=== PATIENT | male | born 1975 | race Caucasian/White ===

== ENCOUNTER 2019-02-26 21:03 | Inpatient (IN) | payer OTHER ==
[~2019-02-26] VITALS: Ht 182.9 cm; Wt 90.7 kg
--- NOTE | 2019-02-26 21:08 | NUR ---
SE RECIBE PT ALERTA Y ORIENTADO X3 DE TRANSFER DESDE [facility], EN AMBULANCIA, EN COMPANIA DE PARAMEDICOS Y FAMILIAR. REFIEREN ABCESO PERIANAL DESDE HACE 2 STEEN.
--- NOTE | 2019-02-26 21:33 | NUR ---
PACIENTE ALERTA Y ORIENTADO X3, CON BUEN PATRON RESPIRATORIO Y SIGNOS VITALES ESTABLES, YA PINCHADO EN BRAZO DERECHO CON ANGIO #20 PATENTE Y LEIA DE EDEMA, SE BERNADINE MUESTRAS BAJO MEDIDAS ASEPTICAS, SE ADMINISTRA MEDICAMENTO GUANAKITO ORDENADO Y SE COLOCA ADRIANA A BAJAR. SE FRANDY TRANQUILO EN CAMA EN ESPERA DE SER REEVALUADO.
--- NOTE | 2019-02-26 23:39 | NUR ---
SE RECIBE PTE ALERTA Y ORIENTADO EN LAS 3 ESFERAS EN CAMA CON BARANDAS ELEVADAS POR SEGURIDAD EN COMPANIA DE FAMILIAR. BUEN PATRON RESPIRATORIO. RECIBIENDO IV'S D5W 0.45 BAJANDO A 150ML/HR AREA LEIA DE EDEMA Y ERITEMA. PENDIENTE CONSULTA CON DR.NICOLAS ROSS. SE MANTIENE EN OBSERVACION POR CAMBIOS EN CONDICION MEDICA.
--- NOTE | 2019-02-27 07:32 | NUR ---
SE RECIBE PAICNETE ALERTA EN CONSULTA CON EL DR. RUSTY ROSS SE MANTIENEEN OBSERVACION EN NPO.
[2019-03-01] MEDS ORDERED: FLAGYL500MG PO (11:07)
[2019-03-01] MEDS ORDERED: CIPRO500 MG PO (11:07)
[2019-03-01] MEDS ORDERED: PERCOCET 5-3251 EACH PO (11:07)
[2019-03-01] MEDS ORDERED: INTESTINEX680 M1 PO (11:07)
== END 2019-03-01 12:35 | disposition home or self-care (01) | DRG 393 ==
LOC: ER 21:03 → SURH 02-27 10:54
PROVIDERS: ADMIT Surgery
PROC: 3E0T3BZ Introduction of Anesthetic Agent into Peripheral Nerves and Plexi, Percutaneous Approach (ICD-10-PCS; 2019-02-27)
PROC: 0J9B00Z Drainage of Perineum Subcutaneous Tissue and Fascia with Drainage Device, Open Approach (ICD-10-PCS; principal; 2019-02-27 11:00)
DX: K61.2 Anorectal abscess (principal); A41.9 Sepsis, unspecified organism; K61.0 Anal abscess; K62.89 Other specified diseases of anus and rectum; B96.29 Other Escherichia coli [E. coli] as the cause of diseases classified elsewhere; B96.6 Bacteroides fragilis [B. fragilis] as the cause of diseases classified elsewhere

== ENCOUNTER 2019-05-07 06:45 | Day surgery (SDC) | payer OTHER ==
[~2019-05-07 06:45] MED LIST: CIPRO500 MG PO; FLAGYL500MG PO; INTESTINEX680 M1 PO; PERCOCET 5-3251 EACH PO
[2019-05-07] MEDS ORDERED: COLACE100 MG PO (10:55)
[2019-05-07] MEDS ORDERED: PERCOCET 5-3251 EACH PO (10:55)
== END 2019-05-07 17:40 | disposition home or self-care (01) ==
LOC: CIR.AMB 06:45
DX: K60.3 Anal fistula (principal)